=== PATIENT | female | born 1955 | race Caucasian/White ===

== ENCOUNTER → 2018-11-10 | Outpatient (CLI) | payer MEDICARE, OTHER ==
[2014-08-16 14:00] VITALS: BP 145/68
[~2018-11-10] MED LIST: AMLO10TA8 PO; ASPI-630 PO; ATOR20TA PO; ESTR0.62 PO; FOLI1TAB16 PO; HYDR200T5 PO; LOSA1TAB25 PO; METH2.5T PO; METO25TA4 PO; TICA90TA PO
--- NOTE | 2018-11-10 09:46 | CARD ---
MR#: [id number] Date of Study: 11/10/2018 Ordering Physician: ARIANNA YUNG, Referring Physician: ARIANNA YUNG, Tech: Vannessa Valdez GEORGE APPROVED REPORT EXAM: Two-dimensional and M-mode echocardiogram with Doppler and color Doppler. Other Information Quality : Good INDICATION Murmur RISK FACTORS Hypertension 2D DIMENSIONS RVDd2.2 (2.9-3.5cm)Left Atrium(2D)3.5 (1.6-4.0cm) IVSd1.4 (0.7-1.1cm)Aortic Root(2D)2.7 (2.0-3.7cm) LVDd5.2 (3.9-5.9cm)LVOT Diameter2.0 (1.8-2.4cm) PWd1.2 (0.7-1.1cm)LVDs3.7 (2.5-4.0cm) FS (%) 28.5 %SV71.9 ml LVEF(%)54.6 (>50%) Aortic Valve AoV Peak Kirill.252.0cm/sAoV VTI55.5cm AO Peak GR.25.4mmHgLVOT Peak Kirill.98.5cm/s AO Mean GR.13mmHgAVA (VMAX)1.27cm2 AMANDA (VTI)1.19jm0HB P 1/2 [id number] Mitral Valve MV E Lyuqihre577.3cm/sMV DECEL [id number] MV A Kjgngthn44.0cm/sE/A Ratio1.3 Pulmonary Vein S1 Acapwsdh26.5cm/sD2 Auzkltxu30.3cm/s LEFT VENTRICLE The left ventricle is normal size. There is mild concentric left ventricular hypertrophy. The left ve ntricular systolic function is normal and the ejection fraction is within normal range. The Ejection Fraction is 55-60%. There is normal LV segmental wall motion. Transmitral Doppler flow pattern is Gra de I-abnormal relaxation pattern. RIGHT VENTRICLE The right ventricle is normal size. The right ventricular systolic function is normal. ATRIA The left atrium size is normal. The right atrium size is normal. The interatrial septum is intact wit h no evidence for an atrial septal defect or patent foramen ovale as noted on 2-D or Doppler imaging. AORTIC VALVE The aortic valve is calcified and displays decreased opening. Doppler and Color Flow revealed mild ao rtic regurgitation. There is no significant aortic valvular stenosis. MITRAL VALVE The mitral valve is calcified but opens well. There is no evidence of mitral valve prolapse. There is no mitral valve stenosis. Doppler and Color-flow revealed mild mitral regurgitation. TRICUSPID VALVE The tricuspid valve is normal in structure and function. Doppler and Color Flow revealed no tricuspid valve regurgitation noted. There is no tricuspid valve stenosis. PULMONIC VALVE The pulmonic valve is not well visualized. Doppler and Color Flow revealed mild pulmonic valvular reg urgitation. There is no pulmonic valvular stenosis. GREAT VESSELS The aortic root is normal in size. The ascending aorta is normal in size. The IVC is normal in size a nd collapses >50% with inspiration. PERICARDIAL EFFUSION There is no evidence of significant pericardial effusion. Critical Notification Critical Value: No <Conclusion> The left ventricular systolic function is normal and the ejection fraction is within normal range. Th e Ejection Fraction is 55-60%. There is normal LV segmental wall motion. Signed by : Charli Cevallos, Electronically Approved : 11/10/2018 09:45:27
--- NOTE | 2018-11-10 13:19 | RAD ---
MR#: [id number] Date of Study: 11/10/2018 Ordering Physician: DEMARCUS CEVALLOS, Referring Physician: ARIANNA YUNG, Tech: Francine Tom RDMS, JACK APPROVED REPORT Patient Location: OUT-PATIENT Laterality:Bilateral Indications Bruit Risk Factors Hypertension: Smoking Previous TX in 2013 Doppler Spectral Velocity Analysis Right Left pCCA 72/13 cm/spCCA 107/17 cm/s mCCA 72/13 cm/smCCA 58/14 cm/s dCCA 54/14 cm/sdCCA 57/13 cm/s Bulb 61/14 cm/sBulb 62/15 cm/s ECA 94/ cm/sECA 107/ cm/s pICA 64/20 cm/spICA 90/25 cm/s [place] 86/24 cm/smICA 86/23 cm/s dICA 82/20 cm/sdICA 77/24 cm/s Vert. 70/ cm/sVert. 42/ cm/s ICA/CCA 1.19ICA/CCA 0.84 Findings Grayscale images of the bilateral common carotid and internal and external carotid vessels reveals mi ld plaque throughout the arterial course. Spectral waveforms and color Doppler reveal grossly normal velocities overall consistent with 0 to le ss than 50% stenosis. Normal ICA to CCA ratios are noted. Normal vertebral velocities with antegrade directionality are noted. Critical Notification Critical Value: No <Conclusion> No significant carotid occlusive disease. Signed by : Demarcus Cevalols, Electronically Approved : 11/10/2018 13:19:11
== END | disposition home or self-care (01) ==
LOC: ECHO 08:32
PROVIDERS: ATTEND Internal Medicine Cardiovascular Disease
DX: I65.23 Occlusion and stenosis of bilateral carotid arteries (principal); I08.8 Other rheumatic multiple valve diseases; I11.9 Hypertensive heart disease without heart failure; F17.200 Nicotine dependence, unspecified, uncomplicated; I25.2 Old myocardial infarction; R00.8 Other abnormalities of heart beat
CPT/HCPCS: 93306; 93880

== ENCOUNTER → 2021-03-10 | Outpatient (CLI) | payer MEDICARE ==
[2021-02-23 13:00] VITALS: BP 156/52
[~2021-03-10] MED LIST changes: +AMLO-187 PO; -AMLO10TA8 PO; +ATOR10TA60 PO; +REGADENOSON 0.4 MG/5 ML DISP.SYRIN. IV ONE
--- NOTE | 2021-03-10 18:32 | RAD ---
MR#: [id number] Date of Study: 03/10/2021 Ordering Physician: ARIANNA ROGEL, Referring Physician: THIAGO LOPEZ Tech: CAROLYN Jesus ARRT (R) (N) APPROVED REPORT Test Type: Pharmacological Stress Nurse/Tech: Jermaine Herrera RN Test Indications: CAD, elevated troponin Cardiac History: COPD, PTCA 2013, HTN, Smoker Medications: See Electronic Medical Record Medical History: See Electronic Medical Record Resting ECG: SR Resting Heart Rate: 74 bpm Resting Blood Pressure: 168/68mmHg Pretest Chest Pain: None Nurse/Tech Notes Lungs CTA, S1S2 Consent: The procedure was explained to the patient in lay terms. Informed consent was witnessed. Geremias eout was entered into [employer]. History and Stress Test performed by CAROLYN Jesus ARRT (R) (N) Pharm. Details Pharmacologic stress testing was performed using 0.4mg per 5ml of regadenoson given intravenously ove r 7-10 seconds. Stress Symptoms No chest pain or symptoms. POST EXERCISE Reason for Termination: Infusion complete Max HR: 95 bpm Max Blood Pressure: 164/61mmHg Blood Pressure response to exercise: Normal blood pressure response during stress. Heart Rate response to exercise: normal response Chest Pain: No. Arrhythmia: No. ST Change: No. INTERPRETATION Stress EKG Conclusion: The resting EKG shows a sinus rhythm with mild nonspecific ST-T wave changes. The stress EKG shows no significant changes from baseline. No EKG evidence of stress-induced ischemia. Imaging Protocol IMAGE PROTOCOL: Rest Tc-99m/stress Tc-99m 1 day Rest: Stress: Viability: Radiopharm.Tc99m VfsuusscdTx16h Sestamibi Dose10.5mCi 33mCi Img Date 03/10/2021 03/10/2021 Inj-Img [id number]. 60min. Rest Admin Site:IV - Right AntecubitalAdministrator:CAROLYN Jesus ARRT (Wiley)(N) Stress Admin Site: IV - Right AntecubitalAdministrator: HOPE Sewell STRESS DATA End Diast. Vol.96.0mlLVEDV index BSA51.0ml End Syst. Vol.31.0mlLVESV index BSA16.0ml Myocardial Zlnv047.0gEject. Zzpggrjv73.0% Stress Scores Regional WT2.00Summed WT8.00 Regional WM0.00Summed WM1.00 LV Perfusion The stress scans showed no significant defects. The rest scans showed no significant defects. Nuclear imaging shows no reversible ischemia or infarct. Wall Motion Left ventricular systolic function is normal with no regional wall motion abnormalities and an ejecti on fraction of greater than 70%. LV Perf. Quant 17 Seg. SSS0.00 17 Seg. SRS0.00 17 Seg. SDS0.00 Stress Defect Extent (% LAD)0.00Rest Defect Extent (% LAD)0.00Rev. Defect Extent (% LAD)0.00 Stress Defect Extent (% LCX) 5.00Rest Defect Extent (% LCX)0.00Rev. Defect Extent (% LCX)1.30 Stress Defect Extent (% RCA)0.00Rest Defect Extent (% RCA)0.00Rev. Defect Extent (% RCA)0.00 Stress Defect Extent (% HEIDI)0.90Rest Defect Extent (% HEIDI)0.00Rev. Defect Extent (% HEIDI)0.20 IMPRESSION Global LV Function: Normal Conclusion 1. No EKG evidence of stress-induced ischemia. 2. Nuclear imaging shows no reversible ischemia or infarct. 3. Normal left ventricular systolic function with an ejection fraction of greater than 70%. 4. Low risk Lexiscan nuclear stress test. Signed by : Arianna Rogel MD Electronically Approved : 03/10/2021 18:31:12
== END ==
LOC: NM 07:34
PROVIDERS: ATTEND Internal Medicine Cardiovascular Disease
DX: R77.8 Other specified abnormalities of plasma proteins (principal)
CPT/HCPCS: 78452; 93017; A9500; J2785